=== PATIENT | male | born 1985 | race Caucasian/White ===

== ENCOUNTER 2021-01-27 12:22 | Emergency (ER) | payer MEDICAID, SELFPAY ==
[2021-01-27 12:48] VITALS: BP 134/72; PULSE 81; RESP 18; TEMP 36.8; O2SAT 97; BMI 26.6
[2021-01-27 12:54] VITALS: BP 134/72; PULSE 89; RESP 18; O2SAT 97
--- NOTE | 2021-01-27 13:03 | W.ED.EXTPRO ---
HPI - Extremity Problem General: Chief complaint: Extremity Injury, Upper Stated complaint: fishing hook in Right hand finger Time Seen by Provider: 01/27/21 12:33 History of Present Illness: HPI Narrative: Nathalie went into the right middle finger on the medial aspect. He got the call from the lower itself. This occurred this morning while he was fishing. Complaint: extremity pain Onset (ago): hour(s) Pain Consistency: constant Location: right and upper extremity Quality: aching Associated symptoms: Deny fever(s) Review of Systems Const: Denies: fever(s) or chills Musc: Reports: extremity pain ([place] in right middle finger) Psych: Denies: anxiety Physical Exam Const: COMMON NORMALS: no acute distress Psych: COMMON NORMALS: mental status grossly normal Skin: OTHER: Right middle finger medial border just between the nail and the DIP joint has a cut off hook that is embedded. I was able to numb the lidocaine in room move the hook without difficulty. Patient has full range of motion of the finger neuro vascular status intact Procedures Foreign Body Removal Time Out Performed: no Site: right Description of foreign body: fish hook Technique: manual removal and removal with forceps Confirmed by:: direct visualization Complications: none Neurovascular: normal capillary fill and distal motor function normal Course Vital Signs: Vital signs: Vital Signs Temperature 98.2 F 01/27/21 12:48 Pulse Rate 81 01/27/21 12:48 Respiratory Rate 18 01/27/21 12:48 Blood Pressure 134/72 01/27/21 12:48 Pulse Oximetry 97 01/27/21 12:48 Discharge Plan Discharge Patient Disposition: Home Clinical Impression: [place] injury to finger Qualifiers: Encounter type: initial encounter Laterality: right Qualified Code(s): S69.91XA - Unspecified injury of right wrist, hand and finger(s), initial encounter Condition: Stable Prescriptions: New cephalexin 500 mg capsule 500 mg PO Q8H 7 Days Qty: 21 RF: 0 Discharge Orders: Discharge ED (Routine); Ordered 01/27/21 Ordered By: Justin Alas Discharge Diet: Usual diet Discharge Activity: Resume usual activity Patient Instructions: Puncture Wound (ED) Activity Restrictions/Additional Instructions: Follow-up with medical provider as directed. Take medications as prescribed. Return to the ER or your medical provider if condition worsens. Please read and understand discharge instructions. If any questions ask please. Coding Level of Care Code ED Wafer Polishing Lead Worker for Caprice Costa
[2021-01-27] MEDS: lidocaine 1% INJ 20 mL INTRADERMA (13:09)
== END 2021-01-27 13:10 | disposition home or self-care (01) ==
PROVIDERS: Emergency Provider Nurse Practitioner Family
DX: S61.242A Puncture wound with foreign body of right middle finger without damage to nail, initial encounter (principal); W26.8XXA Contact with other sharp object(s), not elsewhere classified, initial encounter
CPT/HCPCS: 96372; 99283

== ENCOUNTER 2021-09-25 20:43 | Emergency (ER) | payer MEDICAID, SELFPAY ==
[2021-09-25 20:56] VITALS: BMI 28.1
[2021-09-25 20:59] VITALS: BP 146/75; PULSE 79; RESP 16; TEMP 36.7; O2SAT 99
--- NOTE | 2021-09-25 21:15 | ED_ITS ---
HPI - Extremity Problem General: Chief complaint: Extremity Problem,Nontraumatic Stated complaint: Left Hand Infection Time Seen by Provider: 09/25/21 21:15 History of Present Illness: 36-year-old male patient comes in with wound to the right middle finger. Patient has extensive swelling and redness of the right middle finger with streaking going up to the mid forearm. Patient reports worsening symptoms over the last 2 days. Patient reports 1 week ago he was working in the brush and got something stuck in the back of his finger. Patient started taking penicillin about 2 or 3 days ago. Review of Systems General: Reports: 10 or more systems reviewed and unremarkable except in HPI and below Skin/Breast: Reports: erythema Physical Exam Const: COMMON NORMALS: alert Resp: COMMON NORMALS: normal respiratory effort Cardio: COMMON NORMALS: regular rate and regular rhythm RATE: regular rate RHYTHM: regular rhythm Extremity: LEFT UPPER EXTREMITY: Yes hand & digits (Draining wound, swollen middle finger with redness streaking up to the mid ) Left hand and digits: Yes inspection, Yes palpation, Yes ROM, Yes neurovascular exam and Yes tendon exam Neuro: SENSORIUM/ORIENTATION: Yes alert Psych: COMMON NORMALS: cooperative Skin: WOUNDS: Yes wounds noted (Left middle finger.) drainage purulent, with surrounding erythema and other (Lymphangitis to the mid forearm) Procedures Abscess I/D Site: hand (left middle finger) Side (if applicable): left Local Anesthetic: lidocaine 1% Amount of anesthesia used (mL): 4 Technique: incised with #11 blade Amount of fluid expressed (mL): 5 Irrigation: Yes Packing used?: none Course Vital Signs: Vital signs: Vital Signs Temperature 98.1 F 09/25/21 20:59 Pulse Rate 79 09/25/21 20:59 Respiratory Rate 16 09/25/21 20:59 Blood Pressure 146/75 09/25/21 20:59 Pulse Oximetry 99 09/25/21 20:59 MDM - Extremity (Nontraumatic) Medical Decision Making Patient came in for increased swelling and redness to the dorsal proximal left middle finger. Patient reports a wound that occurred about a week ago over the last 2 to 3 days patient had increased redness and swelling. On exam patient is tender to touch. Skin is warm and dry. There is a fluctuant erythematous lesion to the dorsal right middle finger in the proximal phalanx. Differential diagnosis includes tenosynovitis, cellulitis, abscess, osteomyelitis. X-ray of the hand indicated no osteomyelitis. Patient had good tendon function of the finger. Patient IV started and was given 1 g of Rocephin and 900 mg of clindamycin IV. Patient will be continued on oral antibiotics including cefdinir 600 mg daily and clindamycin 300 mg 4 times a day. Incision and drainage was performed on the wound with good results. Patient was given further instructions for warm water soaks and monitoring for worsening symptoms. Patient reported understanding agreed to plan. Lab Data : 09/25/21 21:10 Radiology Impressions Hand X-Ray 09/25/21 21:18 IMPRESSION: Negative for bony abnormality Laboratory Results WBC 12.9 10^3/uL (4.0-10.0) H 09/25/21 21:10 RBC 4.44 10^6/uL (4.1-5.3) 09/25/21 21:10 Hgb 13.7 g/dL (11.7-16.6) 09/25/21 21:10 Hct 41.6 % (42.0-52.0) L 09/25/21 21:10 MCV 93.7 fl (80-94) 09/25/21 21:10 MCH 30.9 pg (28.0-34.0) 09/25/21 21:10 MCHC 32.9 g/dL (30.0-36.0) 09/25/21 21:10 RDW 13.0 % (12.1-15.1) 09/25/21 21:10 Plt Count 253 10^3/cmm (130-400) 09/25/21 21:10 MPV 11.1 fL (7.4-10.4) H 09/25/21 21:10 Neut % (Auto) 74.6 % 09/25/21 21:10 Lymph % (Auto) 16.0 % 09/25/21 21:10 [place] % (Auto) 5.6 % 09/25/21 21:10 Eos % (Auto) 3.1 % 09/25/21 21:10 Baso % (Auto) 0.4 % 09/25/21 21:10 Neut # (Auto) 9.64 10^3/uL (1.8-7.7) H 09/25/21 21:10 Lymph # (Auto) 2.1 10^3/uL (0.8-4.8) 09/25/21 21:10 [place] # (Auto) 0.7 10^3/uL (0.2-0.9) 09/25/21 21:10 Eos # (Auto) 0.4 10^3/uL (0.0-0.8) 09/25/21 21:10 Baso # (Auto) 0.1 10^3/uL (0.0-0.1) 09/25/21 21:10 Nucleated RBC % (auto) 0 % 09/25/21 21:10 Nucleated RBCs # 0.0 /100WBC 09/25/21 21:10 Discharge Plan Discharge Patient Disposition: Home Clinical Impression: Abscess of left middle finger Condition: Stable Prescriptions: New cefdinir 300 mg capsule 300 mg PO BID 10 Days Qty: 20 0RF clindamycin HCl 300 mg capsule 300 mg PO Q6H 7 Days Qty: 28 0RF hydrocodone-acetaminophen 5-325 mg tablet 1 tab PO Q6H PRN (Reason: pain (scale score 7-10)) Qty: 10 0RF Discharge Orders: Discharge ED (Routine); Ordered 09/25/21 Ordered By: Tl Lott Discharge Diet: Usual diet Discharge Activity: Increase activity as tolerated Patient Instructions: Abscess (ED), Opioid Safety Activity Restrictions/Additional Instructions: Warm water soaks. Add about a capful of bleach to a gallon to 2 gallons of warm water. Soak hand in the bleach for 30 minutes to help wound drain better. Dry thoroughly and cover when wound is draining. Take antibiotics as directed for the next 7 to 10 days. Use acetaminophen and ibuprofen to help control pain. Use hydrocodone for severe pain. Follow-up with primary care in 3 days for recheck. Return to ER for worsening symptoms or high fever. Coding Level of Care Code ED Collateral Specialist for Caprice Fwarnaldo History Expanded Problem Focused Exam Detailed Medical Decision Making Moderate Complexity Time Spent (min) 40
--- NOTE | 2021-09-25 21:18 | XRR_ITS ---
PROCEDURE INFORMATION: Exam: XR Left Hand Exam date and time: 09/25/2021 9:18 PM Age: 36 years old Clinical indication: Pain; Hand; Left; Additional info: Wound infection TECHNIQUE: Imaging protocol: XR Left hand. Views: 3 or more views. COMPARISON: No relevant prior studies available. FINDINGS: Bones/joints: Secondary ossicle at the ulnar styloid process appears chronic. Soft tissues: Soft tissue swelling about the hand. Other findings: Punctate calcification overlying the palmar aspect of what appears to represent the 3rd proximal phalanx on the oblique view. XR/XR hand LT min 3V* [id number] IMPRESSION: Negative for bony abnormality
[2021-09-25 21:26] LABS: Basophils # 0.1 10^3/uL (0.0-0.1); Basophils % 0.4 %; Eosinophils # 0.4 10^3/uL (0.0-0.8); Eosinophils % 3.1 %; Hematocrit 41.6 % (42.0-52.0); Hemoglobin 13.7 g/dL (11.7-16.6); Lymphocytes # 2.1 10^3/uL (0.8-4.8); Mean Corpuscular HGB Conc 32.9 g/dL (30.0-36.0); Mean Corpuscular Hemoglobin 30.9 pg (28.0-34.0); Mean Corpuscular Volume 93.7 fl (80-94); Mean Platelet Volume 11.1 fL (7.4-10.4); Monocytes # 0.7 10^3/uL (0.2-0.9); Monocytes % 5.6 %; Neutrophils # 9.64 10^3/uL (1.8-7.7); Neutrophils % 74.6 %; Nucleated Red Blood Cells % 0 %; Platelet Count 253 10^3/cmm (130-400); Red Blood Count 4.44 10^6/uL (4.1-5.3); White Blood Count 12.9 10^3/uL (4.0-10.0)
[2021-09-25] MEDS: HYDROcodone-acetaminophen 7.5-325 mg Tablet 1 TAB PO (21:29)
[2021-09-25] MEDS: cefTRIAXone 1,000 MG in sodium chloride 0.9% (plus) 50 ML 100 MG IV (21:29)
[2021-09-25] MEDS: clindamycin 900 MG/50 ML PREMIX 100 MG IV (21:59)
[2021-09-25 22:32] VITALS: PULSE 72; RESP 18; O2SAT 98
== END 2021-09-25 22:33 | disposition home or self-care (01) ==
PROVIDERS: Emergency Medicine; Emergency Provider Nurse Practitioner Family
DX: L02.512 Cutaneous abscess of left hand (principal)
CPT/HCPCS: 26010; 73130; 85025; 87070; 87075; 87077; 87186; 87205; 96365; 96367; 99283; J0696; J3490

== ENCOUNTER 2022-01-07 21:07 | Emergency (ER) | payer MEDICAID, SELFPAY ==
[2022-01-07 21:13] VITALS: BP 136/83; PULSE 83; RESP 14; TEMP 36.7; O2SAT 99
--- NOTE | 2022-01-07 21:17 | W.ED.SKABFB ---
HPI - Skin/Abscess/Foreign Bdy General: Chief complaint: Skin/Abscess/Foreign Body Stated complaint: Sore on back of neck Time Seen by Provider: 01/07/22 21:16 History of Present Illness: 36-year-old male patient comes in with an abscess to his right posterior neck. Patient appears well. Patient appears in mild to moderate pain. No acute distress was noted. Patient reports picking at the site and expressing pus from the wound. Associated symptoms: Deny fever(s) Review of Systems General: Reports: 10 or more systems reviewed and unremarkable except in HPI and below Const: Denies: fever(s) Card: Denies: chest pain Resp: Denies: dyspnea Skin/Breast: Reports: new lesions Physical Exam Const: COMMON NORMALS: alert HENMT: COMMON NORMALS: atraumatic HEAD & SCALP: atraumatic Neck/C-Spine: GENERAL: Yes other (Erythematous swollen abscess like lesion) Lymph: LYMPHATIC: no lymphadenopathy noted Resp: COMMON NORMALS: normal respiratory effort Cardio: COMMON NORMALS: regular rate RATE: regular rate Extremity: COMMON NORMALS: full ROM Neuro: SENSORIUM/ORIENTATION: Yes alert Skin: LESIONS: lesion noted (Right posterior neck) Procedures Abscess I/D Site: neck Side (if applicable): right Local Anesthetic: lidocaine 1% and with epi Amount of anesthesia used (mL): 5 Technique: incised with #11 blade Packing used?: none Complications: pain Course Vital Signs: Vital signs: Vital Signs Temperature 98.0 F 01/07/22 21:13 Pulse Rate 83 01/07/22 21:13 Respiratory Rate 14 01/07/22 21:13 Blood Pressure 136/83 01/07/22 21:13 Pulse Oximetry 99 01/07/22 21:13 MDM - Skin/Abscess/Foreign Bdy Medicial Decision Making 36-year-old comes in with abscess to the posterior right side of his neck. On exam patient has swelling induration of the tissue with a central open lesion. Differential diagnosis includes abscess, carbuncle, folliculitis. Under anesthetic the wound was opened further and irrigated with some saline. No significant drainage was noted. There are some noticeable whitish necrosis to the central lesion. This is most likely due to the patient's own poking and prodding of the lesion at home. We will place patient on Bactrim 1 tablet twice a day for 7 days. Recommend warm moist packs and follow-up with primary care in 3 days. Patient reported understanding agreed to plan. Discharge Plan Discharge Patient Disposition: Home Clinical Impression: Abscess, neck Condition: Stable Prescriptions: New sulfamethoxazole-trimethoprim 800-160 mg tablet 1 tab PO BID 7 Days Qty: 14 0RF Continued hydrocodone-acetaminophen 5-325 mg tablet 1 tab PO Q6H PRN (Reason: pain (scale score 7-10)) Qty: 6 0RF Discharge Orders: Discharge ED (Routine); Ordered 01/07/22 Ordered By: Tl Lott Discharge Diet: Usual diet Discharge Activity: Increase activity as tolerated Patient Instructions: Abscess Incision and Drainage (DC) Activity Restrictions/Additional Instructions: Warm moist packs to the area. Wash area with soap and water twice a day. Take antibiotics as directed. Drink plenty of water with medication. Use acetaminophen ibuprofen to control pain. Use hydrocodone for severe pain. Follow-up with primary care for further instruction. Return to ER for new concerns. Coding Level of Care Code ED Mushroom Cutter for Caprice Costa
[2022-01-07] MEDS: sulfamethoxazole-trimeth DS 160-800 mg Tablet 1 TAB PO (21:33)
[2022-01-07] MEDS: HYDROcodone-acetaminophen 5-325 mg Tablet 1 TAB PO (22:12)
== END 2022-01-07 22:20 | disposition home or self-care (01) ==
PROVIDERS: Emergency Provider Nurse Practitioner Family
DX: L02.11 Cutaneous abscess of neck (principal)
CPT/HCPCS: 10060; 99283